=== PATIENT | male | born 1985 | race African-American/Black ===

== ENCOUNTER 2022-06-26 13:22 | Outpatient (CLI) | payer OTHER ==
[2022-06-26 15:21] VITALS: BP 108/68
--- NOTE | 2022-06-26 15:21 | SLEEP CARE CONSULTATION ---
Information from patient questionnaire entered by Armando Barrett. I have reviewed and concur with the information entered by Armando Barrett. This document represents the service I personally performed and the decisions made by me, Allison Smith MD, [facility]. History of Present Illness Service Date and Time: 06/26/2022 1322 Reason for Visit: New patient Chief Complaint: reports: Insomnia, Snoring, Fatigue, Frequent awakenings at night Date of Onset: 1YR Usual bedtime: 2130 DURING THE WEEK AND 1130PM DRURING THE WEEKEND Time it takes to fall asleep: 2-3HRS Snores at night: Yes Observed to quit breathing while asleep: Yes Sleeps alone due to snoring: Yes Number of times waking at night: 1-2 TIMES SOMETIMES 3 Reasons for waking at night: reports: Snoring, Gasping for air, Other (NOISE AND UNKNOWN REASONS ) Toss, Turn, or Twitch while sleeping: Yes Recalls having dreams: Yes Usually gets out of bed at: M-F 4AM WEEKEND VARIES Feels refreshed in the morning: No Morning headache: Yes (RESOLVES AFTER TEA IN THE MORNING ) Sleepy or fatigued during the day: Yes Ever fallen asleep while driving: No Takes day naps: No Prior sleep studies: No Additional HPI information: I had the pleasure of seeing Mr. Trivedi today regarding the possibility of him having a sleep disorder. As you know, he is a 37-year-old gentleman who complains of frequent awakenings, persistent fatigue, and loud snore for about a year. The patient tells me that he normally goes to bed around 9:30 pm, and it takes him approximately 2 3 hours to fall asleep. He takes Prazosin at bedtime. Doxepin was just discontinued. He has been told that he snores loudly and irregularly at night. He has also been observed to stop breathing in his sleep. His sleeps in the same bed. He can recall waking up on the average of 1 - 2 times during the night. Most of the time he wakes up because of noises and because of his own snoring, choking, and having to gasp for air. There is a lot of tossing and turning in his sleep. He has somniloquy (sleep talking) but not somnambulism (sleep walking). Generally, he can recall having dreams. In the morning he usually gets up out of the bed around 4 - 6 a.m. not feeling refreshed nor rested. He occasionally has a morning headache. During the day he complains of feeling sleepy and fatigued. His score on [place] Sleepiness Scale is 13 out of 24. He never has fallen asleep while driving nor has had any accident due to sleepiness. He usually does not take naps during the day. He reports having impaired concentration during the day. - Parasomnia Symptoms Walks in sleep: No Talks in sleep: Yes Ever acted out dreams in sleep: Yes Ever felt weak in the knees when startled or emotional: Yes Bothered by creepy, crawly, restless sensations in legs: Yes Problems with memory or concentration: Yes Subjective Initial [place] Sleepiness Scale score: 13 (06/26/22) Past Medical History Past Medical History: reports: Anxiety, Depression, Mood disorder Social History The patient's occupation is a AM. Patient is and lives in [place]. Have you smoked in the past 12 months: No Alcohol use: Yes Alcohol amount and frequency: 1DRINK 2XAWEEK Caffeine use: Yes Caffeine amount and frequency: 1DRINK 3TIMES Family History Family history of sleep disordered breathing: No Allergies and Home Medications Known drug allergies: No Drug allergies reviewed: Yes Home medication list reviewed: Yes Review of Systems Weight gain over past 5 years: 20 Cardiovascular: reports: leg or foot swelling Respiratory: reports: wheeze Gastrointestinal: reports: heartburn, vomitting Urinary: reports: frequency, impotence Neurological: reports: headaches Psychiatric: reports: anxiety, depression, mood disorder, claustrophobia Ear/Nose/Throat: reports: sinus problems, nose bleeds, wisdom teeth removed Endocrine: reports: increased appetite, increased urination, unexplained weakness Musculoskeletal: reports: back pain Immunologic: reports: allergies to food or environment Physical Exam Vital signs obtained and entered by: ARMANDO Dyer MA Blood Pressure: 108/68 (LEFT ARM) Cuff size: regular (LEFT ARM) Heart Rate: 63 O2 Saturation: 97 Height: 6 ft 1 in Weight: 220 lb 12.8 oz Body Mass Index: 29.1 BMI Classification: Overweight Neck circumference: 17.75 Mood/affect: Normal HEENT: No craniofacial malformation Nostrils: patent to airflow Turbinates: normal Septum: midline Mouth and throat: narrow oropharynx Soft palate: long Hard palate: normal Uvula: normal Uvula visualization: 25% Mallampati Class III Tongue: enlarged in size with teeth granado on lateral edges Tonsils: small Chin and jaw: normal size and position Neck: normal w/o lymphadenopathy or thyromegaly Heart: regular rate and rhythm Lungs: clear bilaterally Extremities: no edema or clubbing Neurologic: intact Impression and Plan IMPRESSION: 1. Obstructive Sleep Apnea-Hypopnea Syndrome, as suggested by history of loud and irregular snoring, observed cessation of breath while asleep, unrefreshed sleep, cognitive impairment, and daytime hypersomnolence. Narrow oropharynx and obesity are common predisposing factors for obstructive sleep apnea-hypopnea syndrome. I recommend proceeding to polysomnography to confirm the diagnosis and to assess severity. I informed the patient of what the sleep studies involve and after some discussion, he agreed to proceed. Plan: 1. Schedule an in-laboratory polysomnography and return in 1 to 2 weeks after the study to discuss result and initiate therapy. 2. Avoid long distance driving or when feeling sleepy. 3. Avoid alcohol, sedative and muscle relaxant around bedtime. 4. Attempt to lose some weight. Plan: in-lab polysomnography Visit Type: In Office Time Spent with Patient (minutes): 15 Provider Statement: I spent 100% of the Face to Face Visit with the patient with greater than 50% spent counseling the patient and coordination of care.
== END 2022-06-26 13:23 | disposition home or self-care (01) ==
LOC: SC 13:22
PROVIDERS: ATTEND Internal Medicine Pulmonary Disease
DX: R06.83 Snoring (principal); R06.81 Apnea, not elsewhere classified; G47.8 Other sleep disorders; R41.89 Other symptoms and signs involving cognitive functions and awareness; G47.10 Hypersomnia, unspecified; E66.3 Overweight; Z68.29 Body mass index [BMI] 29.0-29.9, adult
CPT/HCPCS: 99202; 99212

== ENCOUNTER 2022-07-27 20:07 | Outpatient (CLI) | payer OTHER | END 2022-07-27 20:08 | disposition home or self-care (01) | LOC: SC 20:07 | PROVIDERS: ATTEND Internal Medicine Pulmonary Disease | DX: G47.33 Obstructive sleep apnea (adult) (pediatric) (principal) | CPT/HCPCS: 95810 ==

== ENCOUNTER 2022-08-23 09:38 | Outpatient (CLI) | payer OTHER ==
[2022-08-23 10:21] VITALS: BP 128/70
--- NOTE | 2022-08-23 10:21 | SLEEP CARE CONSULTATION ---
Information from patient questionnaire entered by Trinity Barrett. I have reviewed and concur with the information entered by Trinity Barrett. This document represents the service I personally performed and the decisions made by me, Nedra Woodruff ARNP. History of Present Illness Service Date and Time: 08/23/2022 0938 Initial [place] Sleepiness Scale score: 13 (06/26/22) Current [place] Sleepiness Scale score: 16 (08/23/22) Additional HPI information: STACI HILL returns for follow up and results of the recently performed polysomnography. I explained the pathophysiology behind obstructive sleep apnea. We then spent quite a bit of time discussing different treatment options. For mild obstructive sleep apnea, surgery and oral appliance are alternatives to nasal CPAP therapy but in moderate or severe cases, nasal CPAP is the most effective and reliable treatment. Because apnea is primarily in supine position, then positional management therapy could be effective. Methods discussed such as positioning with pillows, using a T-shirt with tennis balls in the back, or commercial products that have a pillow format on back to prevent supine sleep. I reviewed the impact of weight changes on sleep apnea and strongly recommended losing weight. After some discussion, the patient opted to go with the nasal CPAP therapy. Nasal autoCPAP set at 4-15 cmH20 will be ordered with rationale explained. A manual titration study will be ordered if unable to find optimal pressure with office adjustments. I explained how CPAP machine works and what to expect when using the machine. Using CPAP every night in order to get used to it was emphasized. Patient advised to put CPAP mask on before getting into bed so as not to fall asleep without CPAP. To assist acclimation to CPAP use, it could also be used for a short time during day while reading or watching TV. The patient was instructed to call the CPAP supplier to discuss any mechanical problem that may occur. If the mask given is uncomfortable or is difficult to keep on through the night even with adjustment, contact the CPAP supplier as many will replace with another mask style if notified before 30 days. If snoring or perceives is not getting enough air or too much air from the machine, notify this office. Patient counseled not drink alcohol less than 4 hours before bedtime as it can increase snoring and apnea. Patient was cautioned about risks of drowsy driving until sleepiness symptoms resolve. Sleep Study - Results Type of Sleep Study: Polysomnography (COMPLETED 07/27/22) Prior sleep studies: No Polysomnography/Home Sleep Study results: IMPRESSION: The quality of the study is good. The patient had normal sleep efficiency. The sleep architecture was relatively normal considering the first-night effect. Respiratory monitoring showed mild obstructive sleep apnea-hypopnea (AHI = 6.1) associated with frequent arousals, oxyhemoglobin desaturation and mild hypoxia (paula oxygen saturation of 86%). The respiratory events occurred almost exclusively during supine sleep = (supine AHI = 10.3; non-supine = 1.11). Snore was loud in intensity. There was no significant periodic leg movement of sleep. Cardiac rhythm was normal sinus rhythm without significant arrhythmia. No abnormal behavior (parasomnia) observed during the night. Allergies and Home Medications Known drug allergies: Yes (shellfish) Drug allergies reviewed: Yes Home medication list reviewed: Yes (trazodone 50 mg; prazosin; naproxen) Review of Systems Review of systems same as previous: No (headaches) Physical Exam Vital signs obtained and entered by: TRINITY Dyer MA Blood Pressure: 128/70 (LEFT ARM) Cuff size: regular Heart Rate: 57 O2 Saturation: 98 Height: 6 ft 1 in Weight: 226 lb Body Mass Index: 29.8 BMI Classification: Overweight Impression and Plan 1. Obstructive Sleep Apnea-Hypopnea Syndrome, mild, with lowest oxygen saturation of 86%. Obviously this is the cause of the patients symptoms of unrefreshed sleep, and excessive daytime sleepiness. Positive pressure therapy could benefit anxiety, depression and mood disorder. As mentioned above, the patient will be started on nasal autoCPAP therapy with pressure set at 4-15 cmH2 O. Compliance guidelines also reviewed. A copy of compliance guidelines will be given for reference at check out. Because the apnea is more severe supine, I instructed to avoid sleeping supine using pillow positioning until able to start CPAP use. * Nasal auto CPAP therapy, pressure at 4-15 cm H2O. * Attempt to lose weight. * Avoid alcohol consumption near bedtime. * Avoid supine sleep until using CPAP. * The patient is again cautioned about driving until sleepiness completely resolves. * Return one month after CPAP obtained. I will assess response to therapy and compliance at that time. Counseling Topics: Sleeping position, Weight loss health impact Visit Type: In Office Time Spent with Patient (minutes): 20 Provider Statement: I spent 100% of the Face to Face Visit with the patient with greater than 50% spent counseling the patient and coordination of care.
== END 2022-08-23 09:39 | disposition home or self-care (01) ==
LOC: SC 09:38
PROVIDERS: ATTEND Nurse Practitioner Family
DX: G47.33 Obstructive sleep apnea (adult) (pediatric) (principal)
CPT/HCPCS: 99212; 99213

== ENCOUNTER 2023-01-10 13:31 | Outpatient (CLI) | payer OTHER ==
--- NOTE | 2023-01-10 14:07 | Sleep Patient Instructions ---
Sleep Center Visit Summary - Patient Visit Information Reason for Visit: 7-week follow-up for PAP therapy - Patient Instructions Additional Instructions: You were here for follow up of CPAP therapy. You will be continued on CPAP therapy with pressure at 6-8 cmH2O. You should follow up with sleep care in 3 months. You may contact us sooner for any questions or concerns. - Clinic Information Contact: [facility] [address] [place] [id number] [email or web address] T: [phone]
--- NOTE | 2023-01-10 14:10 | SLEEP CARE CONSULTATION ---
Information from patient questionnaire entered by Trinity Barrett. I have reviewed and concur with the information entered by Trinity Barrett. This document represents the service I personally performed and the decisions made by , Nedra Woodruff ARNP. History of Present Illness Service Date and Time: 01/10/2023 1331 Previous diagnosis: Mild, Obstructive Sleep Apnea-Hypopnea Syndrome AHI: 6.1 (in 2022) Reason for follow up: other (7 WEEK F/U) Equipment type: CPAP (RESMED Airsense 11, s/u 09/2022) Equipment obtained from: Other ([facility]; getting supplies) Mask style: Nasal pillows ([place]) Backup mask available: Yes (other mask) Last cushion change: 2 weeks ago Prior sleep studies: No Type of Sleep Study: Polysomnography (COMPLETED 07/27/22) HPI additional information: STACI HILL was diagnosed to have mild, AHI 6.1, obstructive sleep apnea- hypopnea syndrome and returned today for CPAP therapy 7 weeks with pressure change follow-up. Sleep Study - Results Type of Sleep Study: Polysomnography (COMPLETED 07/27/22) Prior sleep studies: No CPAP Compliance Data - Data Reviewed with Patient Average duration of nightly device use: 5 HRS 36 MIN Compliance rate %: 84 (11/19/22-01/08/23; 45/51 days used) Current pressure setting (cmH2O): 6-8 Average residual AHI: 0.2 Central apnea: 0.1 Obstructive apnea: 0.1 Average large leak: 0.9 L/min Subjective Missed days of use due to: reports: travel (overnight) Patient concerns: reports: dry mouth, nose, throat (dry mouth, occasional), other (headaches, occasional). denies: aerophagia, mask discomfort, air blowing in eyes, mask leak noise, condensation in mask/hose, nasal congestion, epistaxis Observed to snore while using device: No Current pressure setting perceived as: comfortable On therapy, patient: reports: sleeping better, awakening more refreshed, being more awake and alert during the day, more rested overall. denies: drowsiness while driving Initial [place] Sleepiness Scale score: 13 (06/26/22) Current [place] Sleepiness Scale score: 11 (01/10/23) Allergies and Home Medications Known drug allergies: No Drug allergies reviewed: Yes Home medication list reviewed: Yes (no changes) Allergy and home medication list: Allergies shellfish derived Allergy (Verified 01/09/23 11:40) Review of Systems Review of systems same as previous: Yes (no changes) Physical Exam Vital signs obtained and entered by: TRINITY Dyer MA Blood Pressure: 112/64 (LEFT ARM) Cuff size: regular Heart Rate: 73 O2 Saturation: 97 Height: 6 ft 1 in Weight: 234 lb 3.2 oz Body Mass Index: 30.9 BMI Classification: Obese Impression and Plan 1. Obstructive Sleep Apnea-Hypopnea Syndrome, mild, with good treatment compliance and good apnea control. On CPAP therapy, the patient has better sleep quality and is more rested overall. Patient has significant improvement of their sleep apnea and is satisfied with current CPAP therapy. Patient having some dry mouth but this is only occasionally. He is using a nasal pillows mask, [place] 2. He did try of over the nose nasal cushion but did not feel like he could breathe well in that mask. He likes the nasal pillows mask and is going to continue using it. Patient's apnea severity and rationale for treatment to reduce apnea, improve sleep quality and reduce cardiovascular and cerebrovascular events was reviewed. I also reviewed the benefit of consistent device use of CPAP for depression, anxiety and mood disorder. 2. Obesity, unspecified. Currently patients BMI is 30.9. Obesity increases the risk of apnea, CPAP pressure requirements and overall health risks especially cardiovascular and diabetes. Thus patient is advised to lose weight. * Continue auto CPAP pressure at 6-8 cmH2O * Notify me if snoring with mask or feeling that the pressure is too much or too little * Attempt to lose weight * Call this office if any problems using CPAP * Return for follow up in 3 months, or sooner if concerns arise Counseling Topics: Spare mask, Weight loss health impact Visit Type: In Office Time Spent with Patient (minutes): 17 Provider Statement: I spent 100% of the Face to Face Visit with the patient with greater than 50% spent counseling the patient and coordination of care.
[2023-01-10 14:14] VITALS: BP 112/64; O2SAT 97
== END 2023-01-10 13:32 | disposition home or self-care (01) ==
LOC: SC 13:31
PROVIDERS: ATTEND Nurse Practitioner Family
DX: G47.33 Obstructive sleep apnea (adult) (pediatric) (principal); E66.9 Obesity, unspecified; Z68.30 Body mass index [BMI] 30.0-30.9, adult
CPT/HCPCS: 99212